=== PATIENT | female | born 2000 | race African-American/Black ===

== ENCOUNTER → 2025-02-13 09:42 | Outpatient (CLI) | payer OTHER, SELFPAY ==
[2025-02-13 10:37] LABS: Influenza A - CEPHEID Flu A NEGATIVE (NEGATIVE); Influenza B - CEPHEID Flu B NEGATIVE (NEGATIVE); Respiratory Syncytial Virus Negative (Negative)
[2025-02-13 10:46] LABS: COVID-19 CEPHEID 4-PLEX PCR Negative (Negative)
== END ==
PROVIDERS: Visit Provider Physician Assistant
DX: J02.9 Acute pharyngitis, unspecified (principal); R52 Pain, unspecified
CPT/HCPCS: 0241U; 87070